=== PATIENT | male | born 1970 | race Two or more races ===

== ENCOUNTER 2018-11-10 07:26 | Day surgery (SDC) | payer OTHER ==
[2018-11-10] VITALS (11 sets, daily range): BP systolic 117–139; BP diastolic 74–85
[~2018-11-10] VITALS: Ht 195.6 cm; Wt 77.1 kg
[~2018-11-10 07:26] MED LIST: Clindamycin 600mg/D5W 50ml IV ONE; DILANTIN100 MG ORAL; celeBREX 200mg Cap **SURGERY PATIENTS ONLY ORAL ONE; oxyCONTIN 20mg tab ORAL ONE
--- NOTE | 2018-11-10 08:21 | Pre-Procedure Note/Attestation ---
Pre-Procedure Note/Attestation Complete Prior to Procedure Planned Procedure: left Procedure Narrative: shoulder arthroscopy, sad, possible rc repair Indications for Procedure Pre-Operative Diagnosis: left shoulder impingement, rc tear Attestation I attest that I discussed the nature of the procedure; its benefits; risks and complications; and alternatives (and the risks and benefits of such alternatives ), prior to the procedure, with the patient (or the patient's legal licensing representative). I attest that, if there was a reasonable possibility of needing a blood transfusion, the patient (or the patient's legal licensing representative) was given the [facility] standardized written summary, pursuant to the [place] Blood Safety Act ([place] Health and Safety Code # 1645, as amended). I attest that I re-evaluated the patient just prior to the surgery and that there has been no change in the patient's H&P, except as documented below: Lex Foster MD Nov 10, 2018 08:21
--- NOTE | 2018-11-10 08:21 | Operative Note - PDOC ---
Operative Note Operative Note Pre-op Diagnosis: left shoulder impingement, rc tear Procedure: see op report Post-op Diagnosis: same as pre-op plus Operative Findings: consistent w/pre-op dx studies Anesthesia: regional Specimen: none Complications: none Condition: stable Estimated Blood Loss: none Implant(s) used?: No Lex Foster MD Nov 10, 2018 08:21
[2018-11-10] MEDS ORDERED: Tylenol #3 tab (300mg/30mg) ORAL PRN (08:30)
[2018-11-10] MEDS ORDERED: HYDROcodone/Acetamin 5/325 tab ORAL PRN (08:30)
[2018-11-10] MEDS ORDERED: HYDROmorphone 1mg/ml Carpuject SUBQ PRN (08:30)
[2018-11-10] MEDS ORDERED: PHENYTOIN100 MG/4 M ORAL (08:38)
[2018-11-10] MEDS ORDERED: PHENYTOIN SODI100 MG ORAL (08:40)
[2018-11-10] MEDS ORDERED: celeBREX 200mg Cap **SURGERY PATIENTS ONLY ORAL ONE (08:51)
[2018-11-10] MEDS ORDERED: oxyCONTIN 20mg tab ORAL ONE (08:51)
[2018-11-10] MEDS ORDERED: Ketorolac 30mg Inj ONE (09:42)
[2018-11-10] MEDS ORDERED: EPINEPHrine 1mg/1ml Amp ONE (09:42)
[2018-11-10] MEDS ORDERED: Kenalog-40 1ml Vial ONE (09:42)
[2018-11-10] MEDS ORDERED: Bupivacaine w/Epi 0.5% 30ml Vial INJ ONE (09:43)
[2018-11-10] MEDS ORDERED: Ropivacaine 5mg/ml Vial 30ml INJ ONE (10:21)
[2018-11-10] MEDS ORDERED: Lidocaine 1% MPF 10mg/ml 5ml ONE (10:22)
[2018-11-10] MEDS ORDERED: Propofol 200mg/20ml IV ONE (10:22)
--- NOTE | 2018-11-10 10:53 | Anethesia Preoperative Eval ---
Anesthesia Pre-op PMH/ROS General Date of Evaluation: Nov 10, 2018 Time of Evaluation: 10:49 Anesthesiologist: Alex ASA Score: ASA 2 Mallampati Score Class I : Soft palate, uvula, fauces, pillars visible Class II: Soft palate, uvula, fauces visible Class III: Soft palate, base of uvula visible Class IV: Only hard plate visible Mallampati Classification: Class II Surgeon: Cristian Diagnosis: L Shoulder Pain Surgical Procedure: L Shoulder Arthroscopy Anesthesia History: none Family History: no anesthesia problems Allergies: Coded Allergies: PENICILLINS (Verified Allergy, Mild, 11/09/18) SKIN RASH Medications: see eMAR Patient NPO?: Yes Past Medical History Cardiovascular: Reports: HTN Neurologic/Psychiatric: Reports: other - Epilepsy PSxH Narrative: L Knee SX Anesthesia Pre-op Phys. Exam Physician Exam Last Vital Signs Date Time Temp Pulse Resp B/P (MAP) Pulse Ox O2 Delivery O2 Flow Rate FiO2 11/10/18 08:45 Room Air 11/10/18 08:00 97.5 60 17 119/74 99 Constitutional: NAD Neurologic: CN 2-12 intact Cardiovascular: RRR Respiratory: CTA Gastrointestinal: S/NT/ND Airway Exam Mallampati Score: Class II MO: full ROM: full Teeth: intact Anesthesia Pre-op A/P Risk Assessment & Plan Assessment: ASA 2 Plan: GA, SED, Block Status Change Before Surgery: No Pre-Antibiotics Dru Gram Ancef IV Given Within 1 Hr of Incision: Yes Time Given: 11:11 Addy Johnson MD Nov 10, 2018 10:53
[2018-11-10] MEDS ORDERED: Dexamethasone 4mg/ml vial ONE (10:54)
[2018-11-10] MEDS ORDERED: LR 1000ml ONE (11:00)
[2018-11-10] MEDS ORDERED: NS Irrig 1000ml ONE (11:00)
[2018-11-10] MEDS ORDERED: Sterile Water Irrig 1000ml IRRIG ONE (11:00)
[2018-11-10] MEDS ORDERED: Midazolam 2mg/2ml Inj ONE (11:36)
[2018-11-10] MEDS ORDERED: fentaNYL 100 mcg/2 mL ONE (11:36)
--- NOTE | 2018-11-10 12:28 | Immediate Post-Op Evaluation ---
Immediate Post-Op Evalulation Immediate Post-Op Evalulation Procedure: L Shoulder Arthroscopy Date of Evaluation: Nov 10, 2018 Time of Evaluation: 13:13 IV Fluids: 800 LR Blood Products: 0 Estimated Blood Loss: 7 Urinary Output: 0 Blood Pressure Systolic: 139 Blood Pressure Diastolic: 82 Pulse Rate: 85 Respiratory Rate: 16 O2 Sat by Pulse Oximetry: 100 Temperature (Fahrenheit): 97.5 Pain Score (1-10): 1 Nausea: No Vomiting: No Complications 0 Patient Status: awake, reacts, patent, extubated, none Hydration Status: adequate Dru Gram Ancef IV Given Within 1 Hr of Incision: Yes Time Given: 11:11 Addy Johnson MD Nov 10, 2018 12:28
--- NOTE | 2018-11-10 12:29 | 48 Hour Post Anesthesia Eval ---
Post Anesthesia Evaluation Procedure: L Shoulder Arthroscopy Date of Evaluation: Nov 10, 2018 Time of Evaluation: 15:23 Blood Pressure Systolic: 128 0: 81 Pulse Rate: 78 Respiratory Rate: 18 Temperature (Fahrenheit): 98.2 O2 Sat by Pulse Oximetry: 100 Airway: patent Nausea: No Vomiting: No Pain Intensity: 1 Hydration Status: adequate Cardiopulmonary Status: Stable Mental Status/LOC: patient returned to baseline Follow-up Care/Observations: 0 Post-Anesthesia Complications: 0 Follow-up care needed: ready to discharge Addy Johnson MD Nov 10, 2018 12:29
[2018-11-10] MEDS ORDERED: D5 1/2NS 1,000 ML IV SCH (17:00)
--- NOTE | 2018-11-10 17:30 | Operative Note - Dictated ---
DATE OF OPERATION: 11/10/2018 PREOPERATIVE DIAGNOSES: 1. Left shoulder partial rotator cuff tear. 2. Superior labral tear. 3. Impingement syndrome/bursitis. POSTOPERATIVE DIAGNOSES: 1. Left shoulder bursal sided partial rotator cuff tear. 2. Intraarticular loose body. 3. Superior labral tear. 4. Impingement syndrome/bursitis. PROCEDURES: 1. Left shoulder diagnostic arthroscopy and extensive intraarticular debridement. 2. Left shoulder arthroscopic removal of intraarticular loose body. 3. Subacromial decompression bursectomy. SURGEON: Lex Foster M.D. ANESTHESIA: Interscalene with general. INDICATION FOR PROCEDURE: The patient is a pleasant gentleman, who has had continued left shoulder pain. Failed conservative treatment. Elected to undergo left shoulder arthroscopy, subacromial decompression bursectomy with concurrent rotator cuff repair versus debridement. Risks, limitations, expectations, complications of above procedure were discussed in detail. All questions were addressed. DESCRIPTION OF PROCEDURE: After informed consent was obtained, the patient was brought to the operating room. The patient was placed under interscalene general anesthesia. Left shoulder was prepped and draped in a sterile manner. Time-out was performed. Inferolateral stab incision was then made. Trocar introduced into glenohumeral joint. There was some fraying along the anterior labrum extending superiorly. There is no chondral damage. Humeral head, subscap tendon was intact along with the biceps. The supraspinatus was intact. There was intraarticular loose body. An anterior medial working portal was established. Attempt to remove the loose body was attempted. The loose body was in the axillary pouch. Multiple attempts were used to mobilize it until the area was accessible. Ultimately requiring an accessary axillary portal. Using inside-out technique, a portal was established. Graft was placed in the axillary pouch and the loose body was removed. Once that was done, further debridement the superior labrum was performed on stable rim of tissue. Camera was then repositioned in the subacromial space. Complete bursectomy was performed. The undersurface of the acromion was identified. Acromioplasty was started from lateral to medial completed from posterior to anterior. The bursal side of the rotator cuff, which had a small tear was debrided down to healthy tissue. The instruments were removed. Portal sites were closed using 3-0 Monocryl suture. Steri-Strips and sterile dressing were applied. The patient was awoken and taken to recovery room with stable vital signs. ESTIMATED BLOOD LOSS: None. COMPLICATIONS: None. SPECIMENS: None. IMPLANTS: None. Lex Foster M.D. DR: R[place] JOB#: [id number] CC:
== END 2018-11-10 14:55 | disposition home or self-care (01) ==
LOC: SUR 07:26
DX: M75.112 Incomplete rotator cuff tear or rupture of left shoulder, not specified as traumatic (principal); S43.402A Unspecified sprain of left shoulder joint, initial encounter; M75.42 Impingement syndrome of left shoulder; M24.012 Loose body in left shoulder; I10 Essential (primary) hypertension; G40.909 Epilepsy, unspecified, not intractable, without status epilepticus; Z88.0 Allergy status to penicillin; X58.XXXA Exposure to other specified factors, initial encounter; Y92.9 Unspecified place or not applicable
CPT/HCPCS: 29823; J0171; J0690; J1100; J1885; J2250; J2405; J2704; J2795; J3301; 94003; 94150